=== PATIENT | male | born 1955 | race Caucasian/White ===

== ENCOUNTER 2022-05-25 23:07 | Emergency (ER) | payer SELFPAY ==
[2022-05-25] MEDS ORDERED: Alteplase PER PHARMACY Stroke 1 EACH MISC MISCELLANE PRN (23:14)
[2022-05-25] MEDS ORDERED: ALTEPLASE BOLUS 1 MG/1 ML SYRINGE IV STA (23:17)
[2022-05-25] MEDS ORDERED: ALTEPLASE IV STA (23:23)
[2022-05-25 23:25] VITALS: RESP 18
[2022-05-25 23:29] LABS: Glucose,Whole Blood 116 mg/dL (70-110)
--- NOTE | 2022-05-25 23:32 | CT ---
CT scan of the brain. History weakness. Comparison none. FINDINGS: Images of the brain obtained with no contrast. There is hypodensity in the periventricular white madelyn er. There is no mass effect or midline shift. No sign of intracranial hemorrhage. There is cerebral c ortical atrophy. Calvarium is intact. There is normal aeration of the mastoid sinuses. There is some mucosal thickening left maxillary sinus. IMPRESSION: Cerebral atrophy. Mild chronic small vessel ischemia. No acute intracranial abnormality.
[2022-05-25 23:38] LABS: Basophils # (A) 0.1 k/uL (0-0.2); Basophils % (A) 1 %; Eosinophils # (A) 0.2 k/uL (0-0.7); Eosinophils % (A) 2 %; HCT 42.6 % (39.0-53.0); HGB 14.8 gm/dL (13.0-17.5); Lymphocytes # (A) 2.5 k/uL (1.0-4.8); Lymphocytes % (A) 35 %; MCH 32.6 pg (25.0-35.0); MCHC 34.7 g/dL (31.0-37.0); MCV 94.1 fL (80.0-100.0); Mean Platelet Volume 7.5; Monocytes # (A) 0.4 k/uL (0-1.0); Monocytes % (A) 6 %; Neutrophils # (A) 4.1 k/uL (1.3-7.7); Neutrophils % (A) 55 %; Platelet Count 281 k/uL (150-450); RBC 4.53 m/uL (4.30-5.90); RDW 13.4 % (11.5-15.5); WBC 7.4 k/uL (3.8-10.6)
--- NOTE | 2022-05-25 23:38 | ED ---
Neuro HPI - General Chief Complaint: Neuro Symptoms/Deficit Stated Complaint: POSS STROKE Time Seen by Provider: 05/25/22 23:07 Source: EMS Mode of arrival: EMS Limitations: altered mental status - History of Present Illness Is the patient presenting with stroke symptoms?: Yes Last Known Well Date: 05/25/22 Last Known Well Time: 19:30 Initial Comments: 66-year-old male past medical history of hypertension who presents to the emergency department to the emergency department with altered mental status. states that he laid down to sleep around 7:30 PM. He awoke around 10:20 PM and came out into the living room. The patient was grunting and acting abnormally. called EMS. EMS noted that the patient had complete right hemiparesis. He would not follow any commands. He was forced deviated to the left. It took them approximately 20 minutes to commute to the hospital. Upon arrival here the patient will not follow any commands or answer any questions. NIH is 29. No previous history of stroke. Does not take any blood thinners. No known trauma. The remainder of HPI is abbreviated because of the patient's current status - Related Data Allergies/Adverse Reactions: Allergies Allergy/AdvReac Type Severity Reaction Status Date / Time No Known Allergies Allergy Verified 05/25/22 23:17 Review of Systems ROS Statement: Those systems with pertinent positive or pertinent negative responses have been documented in the HPI. ROS Other: All systems not noted in ROS Statement are negative. General Exam Limitations: altered mental status General appearance: lethargic, other (Will not follow any commands. Forced deviated to the left) Head exam: Present: atraumatic, normocephalic, normal inspection ENT exam: Present: normal exam, mucous membranes moist Neck exam: Present: normal inspection. Absent: tenderness, meningismus, lymphadenopathy Respiratory exam: Present: normal lung sounds bilaterally. Absent: respiratory distress, wheezes, rales, rhonchi, stridor Cardiovascular Exam: Present: regular rate, normal rhythm, normal heart sounds. Absent: systolic murmur, diastolic murmur, rubs, gallop, clicks Extremities exam: Present: other (Patient has complete paralysis of the right upper and lower extremity. ) Neurological exam: Present: altered, other (Right-sided facial droop. Patient d oes not follow commands. Grunting only. Forced deviated to the left) Stroke MDM - Lab Data Result diagrams: 05/25/22 23:21 05/25/22 23:21 Lab Results 05/25/22 05/25/22 05/25/22 Range/Units 23:18 23:21 23:21 WBC 7.4 (3.8-10.6) k/uL RBC 4.53 (4.30-5.90) m/uL Hgb 14.8 (13.0-17.5) gm/dL Hct 42.6 (39.0-53.0) % MCV 94.1 (80.0-100.0) fL MCH 32.6 (25.0-35.0) pg MCHC 34.7 (31.0-37.0) g/dL RDW 13.4 (11.5-15.5) % Plt Count 281 (150-450) k/uL MPV 7.5 Neutrophils % 55 % Lymphocytes % 35 % Monocytes % 6 % Eosinophils % 2 % Basophils % 1 % Neutrophils # 4.1 (1.3-7.7) k/uL Lymphocytes # 2.5 (1.0-4.8) k/uL Monocytes # 0.4 (0-1.0) k/uL Eosinophils # 0.2 (0-0.7) k/uL Basophils # 0.1 (0-0.2) k/uL PT 10.4 (9.0-12.0) sec INR 1.0 (<1.2) APTT 21.6 L (22.0-30.0) sec Sodium (137-145) mmol/L Potassium (3.5-5.1) mmol/L Chloride (98-107) mmol/L Carbon Dioxide (22-30) mmol/L Anion Gap mmol/L BUN (9-20) mg/dL Creatinine (0.66-1.25) mg/dL Est GFR (CKD-EPI)AfAm (>60 ml/min/1.73 sqM) Est GFR (CKD-EPI)NonAf (>60 ml/min/1.73 sqM) Glucose (74-99) mg/dL POC Glucose (mg/dL) 116 H (70-110) mg/dL POC Glu Fingernail Sculptor ID Woods, Tia Calcium (8.4-10.2) mg/dL Total Bilirubin (0.2-1.3) mg/dL AST (17-59) U/L ALT (4-49) U/L Alkaline Phosphatase (38-126) U/L Troponin I (0.000-0.034) ng/mL Total Protein (6.3-8.2) g/dL Albumin (3.5-5.0) g/dL 05/25/22 05/25/22 Range/Units 23:21 23:21 WBC (3.8-10.6) k/uL RBC (4.30-5.90) m/uL Hgb (13.0-17.5) gm/dL Hct (39.0-53.0) % MCV (80.0-100.0) fL MCH (25.0-35.0) pg MCHC (31.0-37.0) g/dL RDW (11.5-15.5) % Plt Count (150-450) k/uL MPV Neutrophils % % Lymphocytes % % Monocytes % % Eosinophils % % Basophils % % Neutrophils # (1.3-7.7) k/uL Lymphocytes # (1.0-4.8) k/uL Monocytes # (0-1.0) k/uL Eosinophils # (0-0.7) k/uL Basophils # (0-0.2) k/uL PT (9.0-12.0) sec INR (<1.2) APTT (22.0-30.0) sec Sodium 127 L (137-145) mmol/L Potassium 4.0 (3.5-5.1) mmol/L Chloride 100 (98-107) mmol/L Carbon Dioxide 23 (22-30) mmol/L Anion Gap 4 mmol/L BUN 11 (9-20) mg/dL Creatinine 0.87 (0.66-1.25) mg/dL Est GFR (CKD-EPI)AfAm >90 (>60 ml/min/1.73 sqM) Est GFR (CKD-EPI)NonAf >90 (>60 ml/min/1.73 sqM) Glucose 115 H (74-99) mg/dL POC Glucose (mg/dL) (70-110) mg/dL POC Glu Fingernail Sculptor ID Calcium 8.0 L (8.4-10.2) mg/dL Total Bilirubin 0.5 (0.2-1.3) mg/dL AST 23 (17-59) U/L ALT 22 (4-49) U/L Alkaline Phosphatase 64 (38-126) U/L Troponin I <0.012 (0.000-0.034) ng/mL Total Protein 5.8 L (6.3-8.2) g/dL Albumin 3.0 L (3.5-5.0) g/dL - Medical Decision Making Upon arrival patient is evaluated in the hallway. INH stroke scale is performed which is 29. Patient does have a glucose of 116. He is sent for CT and CT angiography. I did discuss possible treatment options with the patient's . Patient is at the 4 hour danita from last known well. Due to the patient's high NIH of 29 I did discuss with Dr. Castro, the neurosurgeon, on whether the patient should be administered tPA. He is agreeable to this. TPA bolus was given at 11:[address] Castro does review the patient's CT angiography which demonstrates a large left MCA occlusion. He recommends transfer to [facility] at this time for thrombectomy. is made aware of the risks and benefits of transfer and is agreeable. All consents were signed by . He will be taken to the interventional radiology suite as soon as he arrives and clear [place]. I did speak with the neurosurgical TIRE TRIMMER HAND who accepts transfer. He transferred via priority one in stable condition Course Vital Signs 05/25/22 05/25/22 05/25/22 23:10 23:25 23:40 Temperature 98.2 F 98.4 F Pulse Rate 85 85 89 Respiratory 16 18 18 Rate Blood Pressure 154/106 168/89 151/88 O2 Sat by Pulse 97 97 98 Oximetry 05/25/22 05/25/22 23:44 23:59 Temperature 98.6 F 98.2 F Pulse Rate 88 89 Respiratory 18 18 Rate Blood Pressure 150/91 137/97 O2 Sat by Pulse 95 95 Oximetry - Reevaluation(s) Reevaluation #1: Speaking with Dr. Castro. CT of the brain is read negative [place] [address] Blackburn. Patient is at the 4 hour timeframe for onset of strokelike symptoms. Dr. Castro does recommend TPA in light of the high NIH as the patient has no other exclusion criteria 05/25/22 23:28 Reevaluation #2: TPA bolus has been administered 05/25/22 23:33 Reevaluation #3: Accepted for transfer at [facility] 05/25/22 23:48 Critical Care Time Critical Care Time: Yes Critical Care Time: 35 minutes Disposition Clinical Impression: Cerebrovascular accident (CVA), Right hemiparesis Disposition: OTHER INSTITUTION NOT DEFINED Condition: Serious Is patient prescribed a controlled substance at d/c from ED?: No Referrals: None,Stated [Primary Care Provider] - 1-2 days Time of Disposition: 23:50 - Out of Hospital Transfer - Req. Specs Out of Hospital Transfer - Requested Specifics: Other Emergency Center ([facility])
[2022-05-25 23:53] LABS: Prothrombin Time 10.4 sec (9.0-12.0)
[2022-05-25 23:55] LABS: ALT 22 U/L (4-49); African American GFR (CKD) >90 (>60 ml/min/1.73 sqM); Anion Gap 4 mmol/L; Blood Urea Nitrogen 11 mg/dL (9-20); Carbon Dioxide 23 mmol/L (22-30); Chloride 100 mmol/L (98-107); Glucose 115 mg/dL (74-99); Non-African American GFR(CKD) >90 (>60 ml/min/1.73 sqM); Sodium 127 mmol/L (137-145); Total Bilirubin 0.5 mg/dL (0.2-1.3); Total Protein 5.8 g/dL (6.3-8.2)
--- NOTE | 2022-05-25 23:56 | CT ---
EXAMINATION TYPE: CODE STROKE: CTA head neck DATE OF EXAM: 05/25/2022 COMPARISON: None HISTORY: AMS CT DLP: 700 mGycm Automated exposure control for dose reduction was used. CONTRAST: Performed with IV Contrast, patient injected with 65 mL of Isovue 370. Images obtained from the aortic arch to the vertex of the brain without IV contrast. There are 3-D po st processed images. There is arterial flow in both subclavian arteries. There is moderate plaque at the aortic arch. Ther e is arterial flow in the common and external carotid arteries bilaterally. There is thrombosis of t he left internal artery close to the origin. There is plaque formation in approximate 35% stenosis of the origin of the right internal carotid artery. There is arterial flow in both vertebral arteries. Left vertebral artery is larger than the right. There is arterial flow in the vertebrobasilar artery system. Basilar artery fills mostly from the left side. No evidence of carotid or vertebral artery an eurysm or dissection. There is arterial flow in the anterior middle and posterior cerebral arteries bilaterally. There is a 2 cm segment of significant stenosis in the mid left middle cerebral artery. The left middle cerebra l artery appears to fill through the anterior communicating artery. There is thrombosis of the intrac ranial internal carotid artery at the skull base. There is no mass effect. No evidence of intracranial aneurysm or neovascularity. No evidence of throm bosis of the venous sinuses. 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 There is approximate 35% steno sis of the proximal right internal carotid artery. There is significant narrowing of approximately 80% stenosis of the mid left middle cerebral artery. Left middle cerebral artery appears to be filling through the anterior communicating artery from the right side.
[2022-05-26] VITALS: BP 137/97; PULSE 89; TEMP 98.2
[2022-05-26] LABS: AST 23 U/L (17-59); Alkaline Phosphatase 64 U/L (38-126)
[2022-05-26] MEDS ORDERED: SODIUM CHLORIDE 0.9% 50 ML MINI-BAG IV ONE ×3 (00:14→00:23)
--- NOTE | 2022-05-26 00:15 | XR ---
EXAMINATION TYPE: XR chest 1V DATE OF EXAM: 05/26/2022 COMPARISON: NONE HISTORY: Altered mental status TECHNIQUE: Single view FINDINGS: Heart is normal. Lungs are clear. Diaphragm is normal. Bony thorax is intact. There are maria del [address] st leads. IMPRESSION: Normal chest.
[2022-05-26 00:30] LABS: Partial Thromboplastin Time 21.6 sec (22.0-30.0)
== END 2022-05-26 00:03 | disposition other institution (70) ==
LOC: EC 23:07
DX: I69.351 Hemiplegia and hemiparesis following cerebral infarction affecting right dominant side (principal); R29.729 NIHSS score 29
CPT/HCPCS: 99291 ×2; 96374 ×2; 96375 ×2; 36415; 93005; 80053; 84484; 85025; 85610; 85730; 71045; 70496; 70450; 70498; 37195; J2997; Q9967

== ENCOUNTER → 2022-09-09 | Outpatient (CLI) | payer MEDICARE, OTHER ==
[2022-09-09 22:24] LABS: Basophils # (A) 0.05 X 10*3/uL (0.00-0.10); Basophils % (A) 0.6 %; Eosinophils # (A) 0.15 X 10*3/uL (0.04-0.35); Eosinophils % (A) 1.8 %; HCT 49.2 % (39.6-50.0); Immature Grans, Automated 0.2 %; Lymphocytes # (A) 3.47 X 10*3/uL (0.90-5.00); Lymphocytes % (A) 41.7 %; MCHC 30.5 g/dL (32.0-37.0); MCV 91.8 fL (80.0-97.0); Mean Platelet Volume 10.8 fL (9.5-12.2); Monocytes # (A) 0.45 X 10*3/uL (0.20-1.00); Monocytes % (A) 5.4 %; NRBC Per 100 WBC 0 /100 WBCS (0.0-0.0); Neutrophils # (A) 4.19 X 10*3/uL (1.80-7.70); Neutrophils % (A) 50.3 %; Platelet Count 398 X 10*3/uL (140-440); RBC 5.36 X 10*6/uL (4.40-5.60); RDW 14.8 % (11.5-14.5); WBC 8.33 X 10*3/uL (4.50-10.00)
[2022-09-09 22:48] LABS: Anion Gap 13.8 mmol/L (10.00-18.00); Carbon Dioxide 23.8 mmol/L (20.0-27.5)
== END | disposition home or self-care (01) ==
LOC: LABPAT 13:33
PROVIDERS: ATTEND Surgery
DX: Z01.812 Encounter for preprocedural laboratory examination (principal); I65.23 Occlusion and stenosis of bilateral carotid arteries; Z79.899 Other long term (current) drug therapy; Z79.01 Long term (current) use of anticoagulants
CPT/HCPCS: 80051; 85025; 85730

== ENCOUNTER 2023-11-25 15:58 | Emergency (ER) | payer MEDICARE ==
[2023-11-25 16:08] VITALS: RESP 18; TEMP 98.7
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
--- NOTE | 2023-11-25 16:57 | CT ---
EXAMINATION TYPE: CT brain cspine wo con DATE OF EXAM: 11/25/2023 COMPARISON: CT brain May 25, 2022 HISTORY: fall on blood thinners. right side weakness, hx of stroke. CT DLP: 1421.8 mGycm. Automated Exposure Control for Dose Reduction was Utilized. TECHNIQUE: CT scan of the head and cervical spine are performed without contrast. FINDINGS: There is no acute intracranial hemorrhage or midline shift identified. Mild to moderate v entricular and sulcal prominence greatest over the bilateral frontal lobes redemonstrated. Mild to mo derate low attenuation in the periventricular white matter redemonstrated. Old infarct left MCA dist ribution with left-sided ex vacuo dilatation is now present. Nasal septum remains deviated to left of midline. The globes are intact and the visualized sinuses are clear. Cervical spine is visualized in its entirety from C1 through upper thoracic levels and demonstrates s traightened alignment without evidence of acute fracture or dislocation. Grade 1 retrolisthesis C5 on C6 and C6 on C7 Prevertebral soft tissue appears within normal limits. The C1-C2 articulation is wi thin normal limits on the coronal images. Vertebral body heights are maintained. Moderate spurring a nd disc space narrowing at C5-C6 and C6-C7 level is present. Moderate anterior spurring C4-C5 level. Thyroid gland is within normal limits. Lung apices are clear without pneumothorax seen. IMPRESSION: 1. There is no acute fracture or dislocation evident in the cervical spine. 2. No acute intracranial hemorrhage or midline shift is seen.
[2023-11-25 17:11] VITALS: BP 142/82; PULSE 92
== END 2023-11-25 18:48 | disposition home or self-care (01) ==
LOC: EC 15:58
DX: S00.03XA Contusion of scalp, initial encounter (principal); Z87.891 Personal history of nicotine dependence; W01.198A Fall on same level from slipping, tripping and stumbling with subsequent striking against other object, initial encounter
CPT/HCPCS: 70450; 72125; 99284

== ENCOUNTER → 2024-12-03 | Outpatient (CLI) | payer MEDICARE ==
[2024-12-03 15:44] LABS: HGB 14.3 g/dL (13.0-17.0); MCH 27.9 pg (27.0-32.0); MCHC 31.1 g/dL (32.0-37.0); MCV 89.7 FL (80.0-97.0); Mean Platelet Volume 10.1 FL (9.5-12.2); NRBC Per 100 WBC 0 X 10*3/uL (0.00-0.01); Platelet Count 322 X 10*3/uL (140-440); RBC 5.13 X 10*6/uL (4.40-5.60); RDW 14.3 % (11.5-14.5); WBC 8.31 X 10*3/uL (4.50-10.00)
[2024-12-03 16:11] LABS: Blood Urea Nitrogen 14.1 mg/dL (9.0-27.0); Calcium 9.4 mg/dL (8.7-10.3); Chloride 103 mmol/L (96-109); Glucose 94 mg/dL (70-110); Potassium 4.4 mmol/L (3.5-5.5); Sodium 139 mmol/L (135-145)
== END | disposition home or self-care (01) ==
LOC: LABWHC1 09:32
PROVIDERS: ATTEND Internal Medicine Cardiovascular Disease
DX: R00.2 Palpitations (principal)
CPT/HCPCS: 36415; 80048; 84443; 85027